=== PATIENT | female | born 1975 | race Caucasian/White ===

== ENCOUNTER 2018-04-14 04:50 | Day surgery (SDC) | payer OTHER ==
[2018-03-30 15:14] VITALS: BMI 31.4
--- NOTE | 2018-04-14 09:29 | HP ---
Satellite [facility] - Chief Complaint Chief Complaint: left hand pain/numbness - Past Medical History Allergies/Adverse Reactions: Allergies Allergy/AdvReac Type Severity Reaction Status Date / Time No Known Allergies Allergy Verified 03/30/18 15:14 ...LMP: 03/01/18 - Current Medications Current Medications: Home Medications Medication Instructions Recorded Atenolol/Chlorthalidone 1 each PO DAILY 03/30/18 [Atenolol-Chlorthalidone 50-25] Hydrocodone/Acetaminophen [Ashley 1 each PO Q6H PRN #20 tablet MDD 4 04/14/18 5-325 Tablet] [facility] Physical Exam - Physical Examination General Appearance: Well Nourished, Well Developed, Alert & Oriented x3 ENT: Clear Lung: Normal air movement Heart: Regular rate & rhythm Extremities: Other (left hand- + tinels, + phalens, emg + cts) Neurological: Intact, Alert, Oriented Satellite Impression/Plan - Impression/Plan Impression: left cts Operative Procedure: left ctr Date to be Performed: 04/14/18
[2018-04-14] MEDS ORDERED: BUPIVACAINE HCL/PF 0.5% (5MG/ML) 10 ML VIAL ONE (10:42)
[2018-04-14] MEDS ORDERED: MIDAZOLAM HCL 2 MG/2 ML SINGLE DOSE VIAL ONE ×3 (11:12→11:42)
[2018-04-14] MEDS ORDERED: LIDOCAINE HCL/PF 2% SDV 5ML VIAL ONE (11:18)
[2018-04-14] MEDS ORDERED: PROTAMINE SULFATE 50 MG/5 ML VIAL ONE (11:22)
[2018-04-14] MEDS ORDERED: ceFAZolin SODIUM 1 GM VIAL ONE (11:22)
[2018-04-14] MEDS ORDERED: PROPOFOL 20 ML ONE (11:23)
[2018-04-14] MEDS ORDERED: ceFAZolin SODIUM 1 GM VIAL IVPB ONE (11:24)
[2018-04-14] MEDS ORDERED: oxyCODONE HCL 5 MG TABLET PO PRN ×2 (11:27)
[2018-04-14] MEDS ORDERED: ONDANSETRON 4 MG/2 ML VIAL IVPUSH PRN ×2 (11:27→12:04)
[2018-04-14] MEDS ORDERED: LACTATED RINGERS SOLUTION 1,000 ML IV SCH ×2 (11:30→12:15)
[2018-04-14] MEDS ORDERED: BUPIVACAINE HCL/PF 0.5% (5MG/ML) 10 ML VIAL IJ ONE ×2 (11:36)
[2018-04-14] MEDS ORDERED: LIDOCAINE HCL 1%, 10 MG/ML (50 mL VIAL) IJ ONE ×2 (11:36)
[2018-04-14 12:30] VITALS: TEMP 98.5
[2018-04-14 18:41] VITALS: BP 111/76; PULSE 76
--- NOTE | 2018-04-14 20:18 | OP ---
DATE OF OPERATION: 04/14/2018 PREOPERATIVE DIAGNOSIS: Left carpal tunnel syndrome. POSTOPERATIVE DIAGNOSIS: Left carpal tunnel syndrome. OPERATION: Left carpal tunnel release and tenosynovectomy. SURGEON: Jl Ralph M.D. ASSISTANTS: None. ANESTHESIA: MAC, local injection with 10 mL of 0.5% Marcaine and 1% Lidocaine mix. ANESTHESIOLOGIST: Chip Snider MD. DRAINS: None. COMPLICATIONS: None. SPECIMENS: Tenosynovium, left wrist. BLOOD LOSS: None. BLOOD GIVEN: None. FLUID REPLACEMENT: 500 mL of Plasmalyte. INDICATIONS: This patient is a 42-year-old female with a preoperative diagnosis of a severe left carpal tunnel syndrome. After understanding the potential risks, complications, alternatives and benefits of surgery versus nonsurgical treatment, the patient elected to undergo this procedure. The patient understands that she may not have complete relief of her symptoms, including a continuation of the numbness. DESCRIPTION OF PROCEDURE: The patient was brought to the operating room, peripheral IV placed and intravenous sedation was given. One gram of intravenous Ancef was given. MAC anesthesia was induced. A tourniquet was applied to the left upper arm and the left upper extremity was prepped and draped in sterile fashion. The entire case was done under 3.8 loupe magnification. A marking pen was utilized to ind[place] out a longitudinal incision in an already existing skin crease. Twenty mL of 0.5% Marcaine mixed with 1% Lidocaine was injected in and around the surgical incision. The left upper extremity was elevated, exsanguinated with an Esmarch bandage and the tourniquet inflated to 250 mmHg. A No. 15 scalpel blade was utilized to cut down through the skin. Subcutaneous hemostasis was achieved with the bipolar cautery. Dissection was done through the superficial palmar fascia. Self-retaining retractors were placed into the wound. Under direct visualization, the transverse carpal ligament was transected with a No. 15 scalpel blade, exposing the median nerve and the contents of the carpal tunnel. The distal and proximal extents of the release were completed with a Littler scissor and checked with irrigation and my small finger. They were seen to be complete. Limited dissection was done on the radial side of the median nerve and more extensive dissection was done on the ulnar side of the median nerve. The patients nerve was seen to be quite compressed by epineurium and therefore a limited epineurotomy was performed. A Ragnell retractor was used to gently retract the median nerve in a radial direction. The patient had a lot of tenosynovitis and therefore a tenosynovectomy was performed off all 9 flexor tendons. This was passed off the field as tenosynovium, left wrist. The floor of the carpal tunnel was checked. There were no abnormal masses or ganglion cysts. The area was copiously irrigated and washed out and closure begun. Undyed 4-0 Vicryl was used to close the deep dermal layer. Final skin reapproximation was done with horizontal mattress 4-0 nylon sutures. The area was then washed and dried, covered with Xeroform, 4x4s, fluffs between the fingers, Webril and a 4-inch plaster roll was utilized to make a volar splint, which was then wrapped with Ena and Coban. The tourniquet was taken down after a total tourniquet time of 17 minutes. There were no complications during the case. The patient tolerated the procedure well and was brought to the ambulatory recovery room in stable condition. JL RALPH M.D. [id number]
--- NOTE | 2018-04-15 15:52 | PATH ---
Surgical Pathology Report Patient Name: ESTEFANI TARANGO [facility]. Rec. #: [id number] /Age/Gender: 1975 (Age: 42) / F Account: [id number] Location: [facility] SURGICAL Taken: 04/14/2018 Received: 04/14/2018 Reported: 04/15/2018 Physicians: Art Chopra M.D. Specimen(s) Received TENOSYNOVIAL FLUID LEFT HAND Clinical History Left carpal tunnel syndrome Final Diagnosis TENOSYNOVIUM, HAND, LEFT, CARPAL TUNNEL RELEASE: BENIGN DENSE FIBROCONNECTIVE TISSUE. Electronically Signed Noris Hernandez M.D. Gross Description Received in formalin labeled "tenosynovium," is a 2.0 x 1.1 x 0.3 cm aggregate of eng-yellow, irregular portions of soft tissue, consistent with tenosynovium. The specimen is entirely submitted in one cassette. 04/14/2018 saudi04/14/2018
== END 2018-04-14 13:45 | disposition home or self-care (01) ==
LOC: JASU-SURG 04:50
PROVIDERS: ATTEND Orthopaedic Surgery
PROC: 01N50ZZ Release Median Nerve, Open Approach (ICD-10-PCS; principal; 2018-04-14 11:00)
DX: G56.02 Carpal tunnel syndrome, left upper limb (principal)
CPT/HCPCS: 84703; 88304-TC; 94760

== ENCOUNTER 2018-07-13 05:01 | Day surgery (SDC) | payer OTHER ==
[2018-07-05 10:21] VITALS: BMI 35.2
--- NOTE | 2018-07-13 12:13 | HP ---
Satellite [facility] - Chief Complaint Chief Complaint: right wrist pain, mass - Past Medical History Allergies/Adverse Reactions: Allergies Allergy/AdvReac Type Severity Reaction Status Date / Time No Known Allergies Allergy Verified 04/14/18 10:15 ...LMP: 06/21/18 - Current Medications Current Medications: Home Medications Medication Instructions Recorded Atenolol/Chlorthalidone 1 each PO DAILY 03/30/18 [Atenolol-Chlorthalidone 50-25] Oxycodone HCl/Acetaminophen 1 tab PO Q6H #20 tablet MDD 4 07/13/18 [Percocet 5-325 mg Tablet] Satellite Physical Exam - Physical Examination General Appearance: Well Nourished, Well Developed, Alert & Oriented x3 ENT: Clear Lung: Normal air movement Heart: Regular rate & rhythm Extremities: Other (right wrist- + phalens, + tinels EMG + cts) Neurological: Intact, Alert, Oriented Satellite Impression/Plan - Impression/Plan Impression: right cts Operative Procedure: right ctr Date to be Performed: 07/13/18
[2018-07-13] MEDS ORDERED: MIDAZOLAM HCL 2 MG/2 ML SINGLE DOSE VIAL ONE (14:18)
[2018-07-13] MEDS ORDERED: ONDANSETRON 4 MG/2 ML VIAL IVPUSH PRN (14:19)
[2018-07-13] MEDS ORDERED: LIDOCAINE HCL/PF 2% SDV 5ML VIAL ONE (14:21)
[2018-07-13] MEDS ORDERED: LACTATED RINGERS SOLUTION 1,000 ML IV SCH (14:30)
[2018-07-13] MEDS ORDERED: BUPIVACAINE HCL/PF 0.5% (5MG/ML) 10 ML VIAL ONE (15:13)
[2018-07-13] MEDS ORDERED: LIDOCAINE HCL 1%, 10 MG/ML (20ML VIAL) ONE (15:13)
[2018-07-13] MEDS ORDERED: ceFAZolin SODIUM 1 GM VIAL IVPB ONE (15:25)
[2018-07-13] MEDS ORDERED: KETOROLAC TROMETHAMINE 30 MG/1 ML VIAL ONE (15:30)
--- NOTE | 2018-07-13 16:04 | OP ---
Operative Note - Note: Operative Date: 07/13/18 Pre-Operative Diagnosis: right CTS Operation: right CTR, tenosynovectomy Post-Operative Diagnosis: Same as Pre-op Surgeon: Art Chopra Anesthesiologist/RISK AND COMPLIANCE ANALYTICS DIRECTOR: Dave Garcia Specimens Removed: tenosyovium Estimated Blood Loss (mls): 0 Drains, Volume Out (mls): 0 Blood Volume Replaced (mls): 0 Fluid Volume Replaced (mls): 500 Operative Report Dictated: Yes
[2018-07-13] MEDS ORDERED: BUPIVACAINE HCL/PF 0.5% (5MG/ML) 10 ML VIAL IJ ONE (16:14)
[2018-07-13] MEDS ORDERED: LIDOCAINE HCL 1%, 10 MG/ML (20ML VIAL) INF ONE (16:14)
[2018-07-13 16:27] VITALS: TEMP 97.9
[2018-07-13 16:57] VITALS: BP 119/71; PULSE 78
--- NOTE | 2018-07-13 17:17 | SPEC ---
DATE OF OPERATION: 07/13/2018 PREOPERATIVE DIAGNOSIS: Right carpal tunnel syndrome. POSTOPERATIVE DIAGNOSIS: Right carpal tunnel syndrome. PROCEDURE: Right carpal tunnel release and tenosynovectomy. SURGEON: Art Chopra MD NEGOTIATOR SALES: None. ANESTHESIOLOGIST: YOSI Garcia ANESTHESIA: MAC anesthesia. Local injection of 12 mL of 0.5% Marcaine and 1% lidocaine mixed. DRAINS: None. COMPLICATIONS: None. SPECIMEN: Tenosynovium, right wrist. BLOOD LOSS: None. BLOOD GIVEN: None. FLUID REPLACEMENT: 500 mL of PlasmaLyte. INDICATION: This patient is a 43-year-old female with preoperative diagnosis of severe recurrent right carpal tunnel syndrome. After understanding the potential risk, complications, alternatives, and benefits of surgical versus nonsurgical treatment, the patient elected to undergo this procedure. DESCRIPTION OF PROCEDURE: The patient was brought to the operating room, peripheral IV placed and intravenous sedation was given. One gram of intravenous Ancef was given. MAC anesthesia was induced. A tourniquet was applied to the right upper arm and the right upper extremity was prepped and draped in sterile fashion. The entire case was done under 3.8 loupe magnification. A marking pen was utilized to ind[place] out a longitudinal incision in an already existing skin crease. Twenty mL of 0.5% Marcaine mixed with 1% Lidocaine was injected in and around the surgical incision. The right upper extremity was elevated, exsanguinated with an Esmarch bandage and the tourniquet inflated to 250 mmHg. A No. 15 scalpel blade was utilized to cut down through the skin. Subcutaneous hemostasis was achieved with the bipolar cautery. Dissection was done through the superficial palmar fascia. Self-retaining retractors were placed into the wound. Under direct visualization, the transverse carpal ligament was transected with a No. 15 scalpel blade, exposing the median nerve and the contents of the carpal tunnel. The distal and proximal extents of the release were completed with a Littler scissor and checked with irrigation and my small finger. They were seen to be complete. Limited dissection was done on the radial side of the median nerve and more extensive dissection was done on the ulnar side of the median nerve. The patients nerve was seen to be quite compressed by epineurium and therefore a limited epineurotomy was performed. A Ragnell retractor was used to gently retract the median nerve in a radial direction. The patient had a lot of tenosynovitis and therefore a tenosynovectomy was performed off all 9 flexor tendons. This was passed off the field as tenosynovium right wrist. The floor of the carpal tunnel was checked. There were no abnormal masses or ganglion cysts. The area was copiously irrigated and washed out and closure begun. Undyed 4-0 Vicryl was used to close the deep dermal layer. Final skin reapproximation was done with horizontal mattress 4-0 nylon sutures. The area was then washed and dried, covered with Xeroform, 4x4s, fluffs between the fingers, Webril and a 4-inch plaster roll was utilized to make a volar splint, which was then wrapped with Ena and Coban. The tourniquet was taken down after a total tourniquet time of 21 minutes. There were no complications during the case. The patient tolerated the procedure well and was brought to the ambulatory recovery room in stable condition. Addison [id number]
--- NOTE | 2018-07-15 13:38 | PATH ---
Surgical Pathology Report Patient Name: ESTEFANI TARANGO [facility]. Rec. #: [id number] /Age/Gender: 1975 (Age: 43) / F Account: [id number] Location: [facility] SURGICAL Taken: 07/13/2018 Received: 07/14/2018 Reported: 07/15/2018 Physicians: Art Chopra M.D. Specimen(s) Received TENOSYNOVIUM TISSUE RIGHT WRIST Clinical History Right wrist carpal tunnel syndrome Final Diagnosis TENOSYNOVIUM TISSUE, RIGHT, CARPAL TUNNEL RELEASE: BENIGN DENSE FIBROCONNECTIVE TISSUE Electronically Signed Noris Hernandez M.D. Gross Description Received in formalin labeled "right wrist tenosynovium tissue," is a 2.0 x 1.2 x 0.3 cm aggregate of eng-yellow portions of soft tissue, consistent with tenosynovium. The specimen is submitted in toto in one cassette. 07/14/201807/14/2018
== END 2018-07-13 16:59 | disposition home or self-care (01) ==
LOC: JASU-SURG 05:01
PROVIDERS: ATTEND Orthopaedic Surgery
PROC: 01N50ZZ Release Median Nerve, Open Approach (ICD-10-PCS; principal; 2018-07-13 14:30)
DX: G56.01 Carpal tunnel syndrome, right upper limb (principal)
CPT/HCPCS: 84703; 88304-TC